=== PATIENT | female | born 1995 | race Two or more races ===

== ENCOUNTER 2022-04-25 12:10 | Outpatient (CLI) | payer OTHER | END 2022-04-25 12:15 | disposition home or self-care (01) | LOC: PPH VACUNA 12:10 | PROVIDERS: ATTEND Emergency Medicine Pediatric Emergency Medicine | DX: Z23 Encounter for immunization (principal) ==

== ENCOUNTER 2023-05-22 03:30 | Outpatient (CLI) | payer OTHER | END 2023-05-22 03:40 | disposition home or self-care (01) | LOC: PPH VACUNA 03:30 | PROVIDERS: ATTEND Emergency Medicine Pediatric Emergency Medicine | DX: Z23 Encounter for immunization (principal) | CPT/HCPCS: 90686; G0008 ==

== ENCOUNTER 2024-05-29 03:30 | Outpatient (CLI) | payer OTHER | END 2024-05-29 04:00 | disposition home or self-care (01) | LOC: PPH VACUNA 03:30 | PROVIDERS: ATTEND Emergency Medicine Pediatric Emergency Medicine | DX: Z23 Encounter for immunization (principal) ==

== ENCOUNTER 2025-05-19 09:52 | Outpatient (CLI) | payer OTHER | END 2025-05-19 10:02 | disposition home or self-care (01) | LOC: PPH VACUNA 09:52 | PROVIDERS: ATTEND Emergency Medicine Pediatric Emergency Medicine | DX: Z23 Encounter for immunization (principal) ==